=== PATIENT | female | born 1950 | race Caucasian/White ===

== ENCOUNTER 2021-08-20 10:11 | Emergency (ER) | payer MEDICARE, OTHER ==
[2021-08-20] MEDS ORDERED: Sodium Chloride 0.9% 10 ML Syringe FLUSH PRN (10:18)
--- NOTE | 2021-08-20 10:35 | CT ---
Head CT Technique: Multiple axial sections through the brain were obtained. Intravenous contrast was not utilized. Reconstructed coronal and sagittal images were obtained. Comparison: No prior intracranial imaging is available. Findings: Small area of atrophy is seen within the right parietal region. Next to this atrophy there is a low density finding which may represent a fairly acute small infarct. No other abnormal parenchymal densities are seen. No evidence of intracranial hemorrhage. No midline shift or mass-effect is seen. Bone window settings were reviewed. Right mastoid sinus is small and is opacified. Left mastoid sinus is clear. Minimal mucosal thickening is seen within the ethmoid and frontal sinuses. No acute calvarial abnormality is appreciated. Impression: 1. Small area of atrophy within the right parietal region with an additional area of low density suspicious for fairly acute infarct. MRI would be needed to confirm this impression. 2. Minimal sinus findings which are most likely chronic. 3. No other acute abnormality is seen. Diagnostic code #3
--- NOTE | 2021-08-20 11:36 | MR ---
MRI brain Technique: T1 sagittal; T2, T2 FLAIR,, gradient echo and diffusion axial images were obtained, T1 and T2 gradient echo coronal images were obtained. Comparison: Prior head CT study performed earlier on the same day (10:14 AM). Findings: No abnormal diffusion is seen. Focal atrophy is seen within the posterior right parietal region. Mild increased signal is seen in this area. This does not correlate to any diffusion abnormalities and is likely chronic. No other abnormal signal is seen within the brain parenchyma. No midline shift or mass-effect is seen. Ventricles along with basal cisterns and sulci over the convexities are normal for the patient's age. Normal signal void is seen within the major cerebral arteries within the skull base. Impression: 1. Focal atrophy within the right parietal region. Increased signal is seen around this area. No abnormal diffusion is seen in this area and this finding is likely chronic. 2. No additional abnormality is seen on MRI study of the brain. Diagnostic code #2
--- NOTE | 2021-08-20 11:55 | EDM.PDOC ---
ED HPI GENERAL MEDICAL PROBLEM - General Chief Complaint: Neuro Symptoms/Deficits Stated Complaint: [facility] Time Seen by Provider: 08/20/21 10:18 Source of Information: Reports: Patient, EMS, Family History Limitations: Reports: No Limitations - History of Present Illness INITIAL COMMENTS - FREE TEXT/NARRATIVE: The patient presents by [facility] for trouble speaking. The patient says she woke up feeling fine. Her last time known well was 914. She started having trouble getting her words. She had a headache and her blood pressure was high with EMS at 224 systolic. She does have a history of hypertension and she is on hydrochlorothiazide and on atorvostation. She has no numbness or weakness anywhere. She says something like this happened about 20 years ago and she was told it was either a complex migraine or TIA. She has had no problems up until today. She has no fever, chills, cough, chest pain, shortness of breath, abdominal pain, nausea or vomiting. She does not smoke. Her symptoms have resolved. Onset: Sudden Duration: Hour(s): (914) Severity: Moderate Improves with: Reports: None Worsens with: Reports: None Associated Symptoms: Reports: Headaches. Denies: Chest Pain, Cough, Fever/Chills, Nausea/Vomiting, Shortness of Breath Treatments BRANCH ASSISTANT: Reports: EKG, IV/IO Headache Pain Score (Numeric/FACES): 8 - Related Data Allergies Allergy/AdvReac Type Severity Reaction Status Date / Time No Known Allergies Allergy Verified 08/20/21 10:35 Home Meds: Home Meds Atorvastatin. 1 tab PO DAILY 08/20/21 [History] Hydrochlorothiazide. 1 tab PO DAILY 08/20/21 [History] Past Medical History Cardiovascular History: Reports: High Cholesterol, Hypertension Neurological History: Reports: TIA - Past Surgical History Musculoskeletal Surgical History: Reports: Knee Replacement Social & Family History - Tobacco Use Tobacco Use Status *Q: Never Tobacco User - Recreational Drug Use Recreational Drug Use: No ED ROS GENERAL - Review of Systems Review Of Systems: See Below Constitutional: Reports: No Symptoms HEENT: Reports: No Symptoms Respiratory: Reports: No Symptoms Cardiovascular: Reports: No Symptoms Endocrine: Reports: No Symptoms GI/Abdominal: Reports: No Symptoms : Reports: No Symptoms Musculoskeletal: Reports: No Symptoms Skin: Reports: No Symptoms Neurological: Reports: Headache, Trouble Speaking ED EXAM, NEURO - Physical Exam Exam: See Below Exam Limited By: No Limitations General Appearance: Alert, No Apparent Distress Ears: Normal External Exam Nose: Normal Inspection Head Exam: Atraumatic, Normocephalic Neck: Normal Inspection Respiratory/Chest: No Respiratory Distress, Lungs Clear, Normal Breath Sounds Cardiovascular: Regular Rate, Rhythm, No Edema, No Murmur GI/Abdominal: Soft, Non-Tender, No Organomegaly, No Mass Neurological: Alert, No Motor/Sensory Deficits, Oriented x 3 #1 Interpretation EKG Date: 08/20/21 Time: 10:23 Rhythm: NSR Rate (Beats/Min): 87 [place]: Normal P-Wave: Present QRS: Normal ST-T: Normal QT: Normal Course - Vital Signs Last Recorded V/S: Last Vital Signs Temp 96.5 F L 08/20/21 10:29 Pulse 90 08/20/21 10:29 Resp 14 08/20/21 10:29 BP 188/80 H 08/20/21 10:29 Pulse Ox 100 08/20/21 10:29 - Orders/Labs/Meds Orders: Active Orders 24 hr Category Date Time Status Cardiac Monitoring [RC] . DIRECTED Care 08/20/21 10:18 Active Peripheral IV Care [RC] . DIRECTED Care 08/20/21 10:18 Active Sodium Chloride 0.9% [Saline Flush] Med 08/20/21 10:18 Active 10 ml FLUSH ASDIRECTED PRN Peripheral IV Insertion Adult [OM.PC] Stat Oth 08/20/21 10:18 Ordered Medication Orders Sodium Chloride (Sodium Chloride 0.9% 10 Ml Syringe) 10 ml FLUSH ASDIRECTED PRN PRN Reason: Keep Vein Open Last Admin: 08/20/21 11:21 Dose: 10 ml Documented by: YOU Labs: Laboratory Tests 08/20/21 08/20/21 08/20/21 Range/Units 10:45 10:45 10:45 WBC 5.58 (3.98-10.04) K/mm3 RBC 4.12 (3.98-5.22) M/mm3 Hgb 12.9 (11.2-15.7) gm/dl Hct 39.6 (34.1-44.9) % MCV 96.1 H (79.4-94.8) fl MCH 31.3 (25.6-32.2) pg MCHC 32.6 (32.2-35.5) g/dl RDW Std Deviation 42.9 (36.4-46.3) fL Plt Count 281 (182-369) K/mm3 MPV 10.1 (9.4-12.3) fl Neut % (Auto) 74.4 H (34.0-71.1) % Lymph % (Auto) 16.8 L (19.3-51.7) % [place] % (Auto) 6.8 (4.7-12.5) % Eos % (Auto) 1.1 (0.7-5.8) Baso % (Auto) 0.7 (0.1-1.2) % Neut # (Auto) 4.15 (1.56-6.13) K/mm3 Lymph # (Auto) 0.94 L (1.18-3.74) K/mm3 [place] # (Auto) 0.38 H (0.24-0.36) K/mm3 Eos # (Auto) 0.06 (0.04-0.36) K/mm3 Baso # (Auto) 0.04 (0.01-0.08) K/mm3 PT 10.3 (9.7-12.0) SECONDS INR 0.93 APTT 23.1 (21.7-31.4) SECONDS Sodium 136 (136-145) mEq/L Potassium 3.8 (3.5-5.1) mEq/L Chloride 99 (98-107) mEq/L Carbon Dioxide 27 (21-32) mEq/L Anion Gap 13.8 (5-15) BUN 16 (7-18) mg/dL Creatinine 0.6 (0.55-1.02) mg/dL Est Cr Clr Drug Dosing 81.67 mL/min Estimated GFR (MDRD) > 60 (>60) mL/min BUN/Creatinine Ratio 26.7 H (14-18) Glucose 107 H (70-99) mg/dL Calcium 9.2 (8.5-10.1) mg/dL Total Bilirubin 0.4 (0.2-1.0) mg/dL AST 19 (15-37) U/L ALT 20 (14-59) U/L Alkaline Phosphatase 65 (46-116) U/L Troponin I < 0.017 (0.00-0.056) ng/mL Total Protein 7.1 (6.4-8.2) g/dl Albumin 3.9 (3.4-5.0) g/dl Globulin 3.2 gm/dL Albumin/Globulin Ratio 1.2 (1-2) Meds: Medications Generic Name Dose Route Start Last Admin Trade Name Freq PRN Reason Stop Dose Admin Sodium Chloride 10 ml 08/20/21 10:18 08/20/21 11:21 Sodium Chloride 0.9% 10 Ml Syringe FLUSH 10 ml ASDIRECTED PRN Administration Keep Vein Open Discontinued Medications Generic Name Dose Route Start Last Admin Trade Name Freq PRN Reason Stop Dose Admin Acetaminophen 975 mg 08/20/21 12:59 08/20/21 14:13 Acetaminophen 325 Mg Tab PO 08/20/21 13:00 975 mg NOW ONE Administration - Re-Assessments/Exams Free Text/Narrative Re-Assessment/Exam: 08/20/21 11:56 A stroke alert was called. The patient's last time known well was 09:15 this morning. He symptoms have resolved. I ordered an IV saline lock, EKG, CT of her head and labs. Her EKG shows a NSR with no acute changes. Her CT shows small area of atrophy within the right parietal region with an additional area of low density suspicious for fairly acute infarct. MRI would be needed to confirm this impression. Minimal sinus findings which are most likely chronic. No other acute abnormality is seen. Her CBC and CMP look good. Her PT and PTT look good. Her troponin is negative. I did order an MRI of her brain and it shows focal atrophy within the right parietal region. Increased signal is seen around this area. No abnormal diffusion is seen in this area and this finding is likely chronic. No additional abnormality is seen on MRI study of the brain. 08/20/21 14:39 I called [facility] and talked with Dr Stokes the neurologist operations forester. He recommended an aspirin per day and carotic US and echo. The patient is not interested in staying. She is from [facility] and would like to go home. I did order a carotid US and is shows no significant plaque is seen. Velocity measurements are slightly increased within the left internal carotic artery which most likely represents tortuosity. Antegrade flow is noted within both vertebral arteries. The patient had a headache. I ordered tylenol. I will discharge her home on aspirin and go to 1.5 of her hydrochlorothiazide. She will follow up with her doctor at home for an echocardiogram. Departure - Departure Time of Disposition: 14:45 Disposition: Home, Self-Care 01 Condition: Good Clinical Impression: TIA (transient ischemic attack) Headache Qualifiers: Headache type: unspecified Headache chronicity pattern: acute headache Intractability: not intractable Qualified Code(s): R51.9 - Headache, unspecified Hypertension Qualifiers: Hypertension type: unspecified Qualified Code(s): I10 - Essential (primary) hypertension - Discharge Information *PRESCRIPTION DRUG MONITORING PROGRAM REVIEWED*: Not Applicable *COPY OF PRESCRIPTION DRUG MONITORING REPORT IN PATIENT DAX: Not Applicable Referrals: PCP,Not In Area [Primary Care Provider] - Forms: ED Department Discharge Additional Instructions: Take 81mg daily. Take 1.5 of your hydrochlorothiazide daily. Follow up with your doctor early next week. You will need an echocardiogram or ultrasound of your heart. Take tylenol or motrin as needed for headache. Please return if you are worse. Sepsis Event Note (ED) - Evaluation Sepsis Screening Result: No Definite Risk - Focused Exam Vital Signs: Vital Signs Temp Pulse Resp BP Pulse Ox 08/20/21 10:29 96.5 F L 90 14 188/80 H 100 - My Orders Last 24 Hours: My Active Orders 08/20/21 10:18 Cardiac Monitoring [RC] . DIRECTED Peripheral IV Care [RC] . DIRECTED Sodium Chloride 0.9% [Saline Flush] 10 ml FLUSH ASDIRECTED PRN Peripheral IV Insertion Adult [OM.PC] Stat - Assessment/Plan Last 24 Hours: My Active Orders 08/20/21 10:18 Cardiac Monitoring [RC] . DIRECTED Peripheral IV Care [RC] . DIRECTED Sodium Chloride 0.9% [Saline Flush] 10 ml FLUSH ASDIRECTED PRN Peripheral IV Insertion Adult [OM.PC] Stat
[2021-08-20] MEDS ORDERED: Acetaminophen 325 MG Tab PO ONE (12:59)
--- NOTE | 2021-08-20 14:27 | US ---
Carotid ultrasound: Technique: Duplex and color doppler evaluation was performed of the carotid and vertebral arteries. Comparison: No prior carotid imaging is available. Findings: Plaque: No significant plaque is seen. Velocity measurements: Right side: CCA has a peak systolic velocity of 1.16 m/s. ICA has a peak systolic velocity of 1.23 m/s and peak end-diastolic velocity of 0.23 m/s. ECA has a peak systolic velocity of 1.14 m/s. Vertebral artery has a peak systolic velocity of 1.21 m/s. ICA/CCA ratio is 1.1. Left side: CCA has a peak systolic velocity of 1.19 m/s. ICA has a peak systolic velocity of 1.64 m/s and peak end-diastolic velocity of 0.27 m/s. ECA has a peak systolic velocity of 1.45 m/s. Vertebral artery has a peak systolic velocity of 1.19 m/s. ICA/CCA ratio is 1.4. Impression: 1. No significant plaque is seen. Velocity measurements are slightly increased within the left internal carotid artery which most likely represents tortuosity. Antegrade flow is noted within both vertebral arteries. Diagnostic code #2
== END 2021-08-20 15:00 | disposition home or self-care (01) ==
LOC: JD.ED 10:11
DX: G45.9 Transient cerebral ischemic attack, unspecified (principal); I10 Essential (primary) hypertension; E78.00 Pure hypercholesterolemia, unspecified; Z79.899 Other long term (current) drug therapy; Z86.73 Personal history of transient ischemic attack (TIA), and cerebral infarction without residual deficits
CPT/HCPCS: 36415; 70450; 70551; 80053; 84484; 85025; 85610; 85730; 93005; 93880; 99285; A9270